=== PATIENT | female | born 1965 | race Caucasian/White ===

== ENCOUNTER → 2017-02-16 | Outpatient (CLI) | payer BC ==
[~2017-02-16] MED LIST: AUGMENTIN PO; NEXIUM PO; PRILOSEC; SYNTHROID0.2 MG PO; ULTRAM PO; VOLTAREN75 MG PO; WELLBUTRIN PO; ZOLOFT100 MG PO
== END | disposition home or self-care (01) ==
LOC: CECH 13:44
DX: J96.11 Chronic respiratory failure with hypoxia (principal); G47.33 Obstructive sleep apnea (adult) (pediatric); I26.99 Other pulmonary embolism without acute cor pulmonale; I51.7 Cardiomegaly
CPT/HCPCS: 93306